=== PATIENT | male | born 1985 | race Caucasian/White ===

== ENCOUNTER 2021-01-12 21:23 | Emergency (ER) | payer MEDICAID ==
[~2021-01-12] VITALS: Ht 2.5 cm; Wt 122.7 kg
[~2021-01-12 21:23] MED LIST: IBUP-1986 PO
[2021-01-12 21:33] VITALS: BP 163/100
--- NOTE | 2021-01-12 21:41 | NUR ---
Patient sitting on gurney, in no obvious distress.
--- NOTE | 2021-01-12 21:45 | NUR ---
Xray in room with patient.
== END 2021-01-12 22:46 | disposition home or self-care (01) ==
LOC: ER 21:23
DX: S52.691A Other fracture of lower end of right ulna, initial encounter for closed fracture (principal); F12.90 Cannabis use, unspecified, uncomplicated; F15.90 Other stimulant use, unspecified, uncomplicated; Z79.899 Other long term (current) drug therapy; W22.8XXA Striking against or struck by other objects, initial encounter; Y93.89 Activity, other specified; Y92.89 Other specified places as the place of occurrence of the external cause; Y99.8 Other external cause status
CPT/HCPCS: 29260; 73110; 99283

== ENCOUNTER 2021-09-03 20:00 | Emergency (ER) | payer MEDICAID ==
[~2021-09-03] VITALS: Ht 185.4 cm; Wt 118.0 kg
[2021-09-03 21:15] VITALS: BP 132/80
== END 2021-09-03 21:16 | disposition home or self-care (01) ==
LOC: ER 20:01
DX: B34.9 Viral infection, unspecified (principal); Z20.822 Contact with and (suspected) exposure to COVID-19; R11.2 Nausea with vomiting, unspecified; F12.90 Cannabis use, unspecified, uncomplicated; F17.210 Nicotine dependence, cigarettes, uncomplicated; Z79.899 Other long term (current) drug therapy
CPT/HCPCS: 71045; 87635; 99284; C9803

== ENCOUNTER 2024-08-13 22:39 | Emergency (ER) | payer MEDICAID ==
[~2024-08-13] VITALS: Ht 185.4 cm; Wt 130.4 kg
[2024-08-13] MEDS ORDERED: CEPH-585 PO (23:08)
[2024-08-13] MEDS ORDERED: SULF1TAB49 PO (23:08)
[2024-08-13] MEDS: cephalexin 250mg capsule PO ONE (23:15)
[2024-08-13] MEDS: sulfamethoxazole/trimethoprim DS (800/160mg) tablet PO ONE (23:15)
[2024-08-13] MEDS: TETanus/Pertussis (Acell)/Diphther VAC/PF (Tdap-Adult) 0.5ml syringe IMVAC ONE (23:25)
[2024-08-14] VITALS: BP 149/103; PULSE 96; RESP 18; TEMP 98.7; O2SAT 98
== END 2024-08-14 00:07 | disposition home or self-care (01) ==
LOC: ER 22:40
DX: S81.831A Puncture wound without foreign body, right lower leg, initial encounter (principal); I87.8 Other specified disorders of veins; Z79.1 Long term (current) use of non-steroidal anti-inflammatories (NSAID); X58.XXXA Exposure to other specified factors, initial encounter; Y93.89 Activity, other specified; Y92.89 Other specified places as the place of occurrence of the external cause; Y99.8 Other external cause status
CPT/HCPCS: 90471; 90715; 99283